=== PATIENT | male | born 1940 | race Caucasian/White ===

== ENCOUNTER → 2023-11-04 13:42 | Outpatient (REF) | payer OTHER, SELFPAY | LOC: HWRCS 13:42 | PROVIDERS: ATTENDING PHYSICIAN Nurse Practitioner Family | DX: I45.10 Unspecified right bundle-branch block (principal); I45.2 Bifascicular block; R94.31 Abnormal electrocardiogram [ECG] [EKG] | CPT/HCPCS: 93306 ==